=== PATIENT | female | born 1995 | race Caucasian/White ===

== ENCOUNTER 2016-08-16 04:30 | Observation (INO) ==
[2016-08-16] MEDS ORDERED: Ondansetron 4 MG/2 ML VIAL IVP ONE (04:44)
[2016-08-16] MEDS ORDERED: *HR* Morphine 2 MG/ML SYRINGE IVP ONE (04:44)
[2016-08-16] MEDS ORDERED: Ketorolac 30 MG/ML VIAL IVP ONE (04:44)
--- NOTE | 2016-08-16 05:01 | Emergency Department Note ---
Disposition Clinical Impression: Pancreatitis Qualifiers: Chronicity: acute Pancreatitis type: other Acute pancreatitis complication: no infection or necrosis Qualified Code(s): K85.80 - Other acute pancreatitis without necrosis or infection Disposition: Still a Patient Condition: Good Referrals: NO,PCP [Primary Care Provider] - Forms: Work/School Release, ED Satisfaction Letter Time of Disposition: 06:56 General Adult HPI - General Chief complaint: ED Abdominal Pain Stated complaint: right flank pain Time Seen by Provider: 08/16/16 04:33 Source: patient Mode of arrival: ambulatory Limitations: no limitations Nursing Notes Reviewed: Yes Vital Signs Reviewed: Yes - History of Present Illness HPI Narrative: Right-sided flank pain that began around 10 or 11:00 last night. States it is sharp in nature. It radiates around to her groin. No history of kidney stones. Denies hematuria. No alleviating factors. She states that she cannot get comfortable in bed so she came to the emergency department. Pain Scale: 10 - Related Data Previous Rx's Medication Instructions Recorded Ondansetron ODT [Zofran ODT] 4 mg SL Q6HR PRN #30 tab.rapdis 08/19/15 Allergies Allergy/AdvReac Type Severity Reaction Status Date / Time acetaminophen [From Vicodin] Allergy Anaphylaxis Verified 06/13/15 00:07 etodolac Allergy Swelling Verified 06/13/15 00:07 of Lip/Tongue/Throat gabapentin [From Neurontin] Allergy Palpitation Verified 08/19/15 00:34 s hydrocodone [From Vicodin] Allergy Anaphylaxis Verified 06/13/15 00:07 mirtazapine Allergy Hallucinati Verified 06/13/15 00:07 ng naproxen Allergy Abdominal Verified 06/13/15 00:07 Pain pine Allergy Difficulty Uncoded 06/13/15 00:07 Breathing symphony Allergy Hives Uncoded 06/13/15 00:07 All systems ED: reviewed and negative except as stated. Constitutional: Denies: fever, chills ENT ED: Denies: congestion Cardiovascular: Denies: chest pain, palpitations, syncope Respiratory: Denies: cough, dyspnea, wheezes Gastrointestinal: Reports: nausea, vomiting. Denies: abdominal pain, diarrhea, hematemesis, melena, hematochezia Genitourinary: Reports: frequency (Increased.). Denies: urgency, dysuria, hematuria, discharge, dyspareunia Musculoskeletal: Denies: back pain Integumentary: Denies: rash, abrasion Neurological: Denies: headache, weakness Psychiatric: Denies: anxiety Past Medical History - Past Medical History Attestation: Yes The following information was validated with the patient. 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 Absent: scleral icterus - ENT ENT exam: normal exam, normal oropharynx, mucous membranes moist - Neck Neck exam: Present: normal inspection, full ROM, trachea midline - Chest Chest inspection: Present: normal inspection, symmetric chest wall rise. Absent : tenderness - Respiratory Respiratory exam: Present: normal lung sounds bilaterally. Absent: respiratory distress, wheezes - Cardiovascular Cardiovascular exam: Present: regular rate, normal rhythm, normal heart sounds - Abdominal Exam Abdominal exam: Present: soft, Non-Tender, normal bowel sounds, organomegaly. Absent: tenderness, distention, guarding, rebound, rigidity - Extremities Exam Extremities exam: Present: normal inspection, full ROM, normal capillary refill. Absent: tenderness, pedal edema - Back Exam Back exam: Present: normal inspection, full ROM, CVA tenderness (R). Absent: tenderness, CVA tenderness (L) - Neurological Exam Neurological exam: Present: alert, oriented X3 - Psychiatric Psychiatric exam: Present: normal affect, normal mood - Skin Skin exam: Present: warm, dry, intact, normal color. Absent: rash Course Course Narrative: Female patient resting in bed at this time. She is complaining of right back pain that began around 10 to 11:00 last night. She states that she laying in bed when the pain started. She states she could not get comfortable so she ended up coming to the emergency department. She complains of increased urination. She has a type II diabetic states that her blood sugars have been around 200s. She does take Victoza for this. She denies any history of kidney stones. She denies any hematuria. She does report 2 episodes of vomiting tonight. On exam her lung sounds are clear heart sounds are normal. She appears to be resting comfortably. She does have right-sided flank pain on palpation. She states this pain radiates around to her lower abdomen. On abdominal exam her abdomen is soft and nontender to exam. Her lung sounds are clear heart tones are normal. She has no history of stones we will CT patient' s abdomen and provide her with pain relief she is here. - Reevaluation(s) Reevaluation #1: Patient's lipase is elevated. We will admit patient for pancreatitis. CT scan is still pending. Pt is agreeable with this plan. Time: 06:55 Vital Signs Temperature 97.5 F L 08/16/16 04:31 Pulse Rate 88 08/16/16 04:31 Respiratory Rate 18 08/16/16 04:31 Blood Pressure 138/87 08/16/16 04:31 O2 Sat by Pulse Oximetry 99 08/16/16 04:31 Temperature 97.5 F L 08/16/16 04:31 Pulse Rate 88 08/16/16 04:31 Respiratory Rate 18 08/16/16 04:31 Blood Pressure 138/87 08/16/16 04:31 O2 Sat by Pulse Oximetry 99 08/16/16 04:31 Oxygen Delivery Oxygen Delivery Room Air Medical Decision Making - Medical Records Medical records reviewed: Yes I reviewed the patient's medical records. - Lab Data Lab results reviewed: Yes I reviewed the patient's lab results. Result diagrams: 08/16/16 04:59 08/16/16 04:59 Lab Results 08/16/16 08/16/16 08/16/16 Range/Units 04:59 04:59 04:59 WBC 11.0 (4.3-11.1) K/mcL RBC 5.33 H (3.82-4.97) M/mcL Hgb 15.2 (11.5-15.4) g/dL Hct 46.0 H (35.3-44.9) % MCV 86.3 (83.0-100.0) fL MCH 28.5 (28.0-33.3) pg MCHC 33.0 (31.6-35.5) g/dL RDW 13.1 (11.5-14.5) % Plt Count 207 (140-400) K/mcL MPV 10.6 (9.4-12.4) fL Immature Gran % 0.4 (0-4) % Seg Neutrophils % 68.3 % Lymphocytes % 22.2 % Monocytes % 6.8 % Eosinophils % 1.8 % Basophils % 0.5 % Neutrophils # 7.5 (1.6-8.9) K/mcL Lymphocytes # 2.4 (0.6-4.6) K/mcL Monocytes # 0.8 (0.0-1.3) K/mcL Eosinophils # 0.2 (0.0-0.6) K/mcL Basophils # 0.1 (0.0-0.2) K/mcL Sodium 135 L (136-145) mEq/L Potassium 3.8 (3.5-4.5) mEq/L Chloride 101 (98-109) mEq/L Carbon Dioxide 25 (19-29) mEq/L BUN 14 (7-20) mg/dL Creatinine 0.85 (0.57-1.11) mg/dL Est GFR ( Amer) > 60 (> 60) Est GFR (Non-Af Amer) > 60 (> 60) BUN/Creatinine Ratio 16 (6-26) Glucose 334 H (70-99) mg/dL Calculated Osmolality 294 (280-300) Calcium 9.3 (8.6-10.8) mg/dL Total Bilirubin 0.7 (0.2-1.2) mg/dL Direct Bilirubin 0.2 (0.0-0.5) mg/dL Indirect Bilirubin 0.5 (0.0-1.2) mg/dL AST 13 (5-34) Units/L ALT 19 (0-55) Units/L Alkaline Phosphatase 65 (38-126) Units/L Serum Total Protein 7.1 (6.0-8.3) g/dL Albumin 3.8 (3.5-5.0) g/dL Globulin 3.3 (2.4-3.5) g/dL Albumin/Globulin Ratio 1.2 (1.1-2.2) Lipase 371 H (8-78) Units/L Serum , Qual Negative (Negative) Urine Color (Yellow) Urine Clarity (Clear) Urine pH (5.0-8.0) pH Units Ur Specific [place] (1.010-1.025) Urine Protein (Neg-Trace) mg/dL Urine Glucose (UA) (Normal) mg/dL Urine Ketones (Negative) mg/dL Urine Blood (Negative) Urine Nitrite (Negative) Urine Bilirubin (Negative) Urine Urobilinogen (Normal) mg/dL Ur Leukocyte Esterase (Negative) Urine Test (Negative) 08/16/16 08/16/16 Range/Units 06:40 06:40 WBC (4.3-11.1) K/mcL RBC (3.82-4.97) M/mcL Hgb (11.5-15.4) g/dL Hct (35.3-44.9) % MCV (83.0-100.0) fL MCH (28.0-33.3) pg MCHC (31.6-35.5) g/dL RDW (11.5-14.5) % Plt Count (140-400) K/mcL MPV (9.4-12.4) fL Immature Gran % (0-4) % Seg Neutrophils % % Lymphocytes % % Monocytes % % Eosinophils % % Basophils % % Neutrophils # (1.6-8.9) K/mcL Lymphocytes # (0.6-4.6) K/mcL Monocytes # (0.0-1.3) K/mcL Eosinophils # (0.0-0.6) K/mcL Basophils # (0.0-0.2) K/mcL Sodium (136-145) mEq/L Potassium (3.5-4.5) mEq/L Chloride (98-109) mEq/L Carbon Dioxide (19-29) mEq/L BUN (7-20) mg/dL Creatinine (0.57-1.11) mg/dL Est GFR ( Amer) (> 60) Est GFR (Non-Af Amer) (> 60) BUN/Creatinine Ratio (6-26) Glucose (70-99) mg/dL Calculated Osmolality (280-300) Calcium (8.6-10.8) mg/dL Total Bilirubin (0.2-1.2) mg/dL Direct Bilirubin (0.0-0.5) mg/dL Indirect Bilirubin (0.0-1.2) mg/dL AST (5-34) Units/L ALT (0-55) Units/L Alkaline Phosphatase (38-126) Units/L Serum Total Protein (6.0-8.3) g/dL Albumin (3.5-5.0) g/dL Globulin (2.4-3.5) g/dL Albumin/Globulin Ratio (1.1-2.2) Lipase (8-78) Units/L Serum , Qual (Negative) Urine Color Yellow (Yellow) Urine Clarity Cloudy A (Clear) Urine pH 6.0 (5.0-8.0) pH Units Ur Specific [place] > 1.030 H (1.010-1.025) Urine Protein Negative (Neg-Trace) mg/dL Urine Glucose (UA) >=1000 H (Normal) mg/dL Urine Ketones 15 H (Negative) mg/dL Urine Blood Large H (Negative) Urine Nitrite Negative (Negative) Urine Bilirubin Negative (Negative) Urine Urobilinogen Normal (Normal) mg/dL Ur Leukocyte Esterase Negative (Negative) Urine Test Negative (Negative) - Radiology Data Radiology results reviewed: Yes I reviewed the patient's radiology results. Attestation Statement - Attestation Attestation: I personally interviewed and examined this patient and my medical decision- making was reviewed with the ED Resident Physician, Dr. Worthy. I agree with the documented findings, disposition and treatment plan as described except to the extent set forth below. Patient is a 20-year-old diabetic female who presents to emergency today with complaints of right sided flank pain and right-sided abdominal pain. Patient states that associated with 2 episodes of vomiting in the last 12 hours. Patient also complaining of increased urinary frequency and no dysuria and no flank discomfort. Patient denies any fevers or chills, no bowel changes, no other associated symptoms. Agree with Dr. Worthy physical exam findings as documented. Since lab evaluation shows elevated lipase, unclear as to the etiology. Patient states symptoms sounded clinically more suspicious for renal colic so we are obtaining CT imaging to evaluate the genitourinary system for any kidney stones or Dw[place], as well as the pancreas for any surgical complications. CT imaging is pending at this time. We will plan to admit the patient for further evaluation of acute pancreatitis and hyperglycemia, and discussed with hospitalist.
[2016-08-16 05:05] LABS: Basophils # 0.1 K/mcL (0.0-0.2); Basophils % 0.5 %; Eosinophils # 0.2 K/mcL (0.0-0.6); Eosinophils % 1.8 %; Hemoglobin 15.2 g/dL (11.5-15.4); Immature Granulocytes % 0.4 % (0-4); Lymphocytes # 2.4 K/mcL (0.6-4.6); Lymphocytes % 22.2 %; Mean Corpuscular Hemoglobin 28.5 pg (28.0-33.3); Mean Corpuscular Volume 86.3 fL (83.0-100.0); Mean Platelet Volume 10.6 fL (9.4-12.4); Monocytes # 0.8 K/mcL (0.0-1.3); Monocytes % 6.8 %; Neutrophils # 7.5 K/mcL (1.6-8.9); Platelet Count 207 K/mcL (140-400); Red Blood Count 5.33 M/mcL (3.82-4.97); Red Cell Distribution Width 13.1 % (11.5-14.5); Segmented Neutrophils % 68.3 %
[2016-08-16 05:20] LABS: Alanine Aminotransferase 19 Units/L (0-55); Albumin 3.8 g/dL (3.5-5.0); Albumin/Globulin Ratio 1.2 (1.1-2.2); Alkaline Phosphatase 65 Units/L (38-126); Aspartate Amino Transferase 13 Units/L (5-34); BUN/Creatinine Ratio 16 (6-26); Bilirubin,Direct 0.2 mg/dL (0.0-0.5); Bilirubin,Indirect 0.5 mg/dL (0.0-1.2); Bilirubin,Total 0.7 mg/dL (0.2-1.2); Blood Urea Nitrogen 14 mg/dL (7-20); Calcium 9.3 mg/dL (8.6-10.8); Carbon Dioxide 25 mEq/L (19-29); Chloride 101 mEq/L (98-109); Globulin 3.3 g/dL (2.4-3.5); Glucose 334 mg/dL (70-99); Lipase 371 Units/L (8-78); Osmolality,Calculated 294 (280-300); Potassium 3.8 mEq/L (3.5-4.5); Sodium 135 mEq/L (136-145); Total Protein 7.1 g/dL (6.0-8.3); eGFR For African Americans > 60 (> 60); eGFR For Non-African Americans > 60 (> 60)
[2016-08-16] MEDS ORDERED: 0.9 % Sodium Chloride 1,000 ML IVC ONE (05:43)
[2016-08-16 06:51] LABS: Bilirubin,Urine Negative (Negative); Blood,Urine Large (Negative); Clarity,Urine Cloudy (Clear); Color,Urine Yellow (Yellow); Glucose,Urine (UA) >=1000 mg/dL (Normal); Ketones,Urine 15 mg/dL (Negative); Leukocyte Esterase,Urine Negative (Negative); Nitrite,Urine Negative (Negative); Protein,Urine Negative (Neg-Trace); Specific Gravity,Urine > 1.030 (1.010-1.025); Urobilinogen,Urine Normal (Normal)
[2016-08-16 07:14] LABS: RBC,Urine 50-100 per hpf (0-3); WBC,Urine 0-3 per hpf (0-3)
[2016-08-16 07:15] LABS: Bacteria,Urine Few per hpf (None-Few); Squamous Epithelial Cell,Urine Moderate per lpf (None-Few)
[2016-08-16] MEDS ORDERED: *HR* HYDROmorphone (PF) 1 MG/ML SYRINGE IVP ONE (07:16)
--- NOTE | 2016-08-16 07:17 | Emergency Department Note ---
Disposition Clinical Impression: Kidney stone Pancreatitis Qualifiers: Chronicity: acute Pancreatitis type: other Acute pancreatitis complication: no infection or necrosis Qualified Code(s): K85.80 - Other acute pancreatitis without necrosis or infection Disposition: Admitted As Inpatient Condition: Good Referrals: NO,PCP [Primary Care Provider] - Forms: ED Satisfaction Letter, Work/School Release Time of Disposition: 07:38 General Adult HPI - General Chief complaint: ED Abdominal Pain Stated complaint: right flank pain Time Seen by Provider: 08/16/16 04:33 Source: patient Mode of arrival: ambulatory Limitations: no limitations - History of Present Illness Pain Scale: 10 - Related Data Home Medications Medication Instructions Recorded Confirmed Acetaminophen [Tylenol] 1,000 mg PO Q6HR PRN 08/16/16 08/16/16 Leflunomide [Arava] 20 mg PO DAILY 08/16/16 08/16/16 Levothyroxine [Synthroid] 50 mcg PO DAILY 08/16/16 08/16/16 Liraglutide [Victoza 3-Simone] 0.6 mg SQ DAILY 08/16/16 08/16/16 Pregabalin [Lyrica] 150 mg PO BID 08/16/16 08/16/16 Prochlorperazine Maleate 10 mg PO Q8HR PRN 08/16/16 08/16/16 [Compazine] Topiramate [Topamax] 50 mg PO HS 08/16/16 08/16/16 Allergies Allergy/AdvReac Type Severity Reaction Status Date / Time acetaminophen [From Vicodin] Allergy Anaphylaxis Verified 06/13/15 00:07 etodolac Allergy Swelling Verified 06/13/15 00:07 of Lip/Tongue/Throat gabapentin [From Neurontin] Allergy Palpitation Verified 08/19/15 00:34 s hydrocodone [From Vicodin] Allergy Anaphylaxis Verified 06/13/15 00:07 mirtazapine Allergy Hallucinati Verified 06/13/15 00:07 ng naproxen Allergy Abdominal Verified 06/13/15 00:07 Pain pine Allergy Difficulty Uncoded 06/13/15 00:07 Breathing symphony Allergy Hives Uncoded 06/13/15 00:07 Constitutional: Denies: fever, chills ENT ED: Denies: congestion Cardiovascular: Denies: chest pain, palpitations, syncope Respiratory: Denies: cough, dyspnea, wheezes Gastrointestinal: Reports: nausea, vomiting. Denies: abdominal pain, diarrhea, hematemesis, melena, hematochezia Genitourinary: Reports: frequency (Increased.). 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: polycystic ovary syndrome - Social History Smoking Status: Current every day smoker Smokeless Tobacco Status: No Alcohol use: Reports: none Drug use: Reports: none Physical Exam - General Limitations: no limitations General appearance: alert, in no apparent distress Course Vital Signs Temperature 97.5 F L 08/16/16 04:31 Pulse Rate 88 08/16/16 04:31 Respiratory Rate 18 08/16/16 04:31 Blood Pressure 138/87 08/16/16 04:31 O2 Sat by Pulse Oximetry 99 08/16/16 04:31 Temperature 97.5 F L 08/16/16 04:31 Pulse Rate 80 08/16/16 07:34 Respiratory Rate 16 08/16/16 07:34 Blood Pressure 127/76 08/16/16 07:34 O2 Sat by Pulse Oximetry 98 08/16/16 07:34 Oxygen Delivery Oxygen Delivery Room Air Medical Decision Making - Lab Data Lab results reviewed: Yes I reviewed the patient's lab results. Result diagrams: 08/16/16 04:59 08/16/16 04:59 Lab Results 08/16/16 08/16/16 08/16/16 Range/Units 04:59 04:59 04:59 WBC 11.0 (4.3-11.1) K/mcL RBC 5.33 H (3.82-4.97) M/mcL Hgb 15.2 (11.5-15.4) g/dL Hct 46.0 H (35.3-44.9) % MCV 86.3 (83.0-100.0) fL MCH 28.5 (28.0-33.3) pg MCHC 33.0 (31.6-35.5) g/dL RDW 13.1 (11.5-14.5) % Plt Count 207 (140-400) K/mcL MPV 10.6 (9.4-12.4) fL Immature Gran % 0.4 (0-4) % Seg Neutrophils % 68.3 % Lymphocytes % 22.2 % Monocytes % 6.8 % Eosinophils % 1.8 % Basophils % 0.5 % Neutrophils # 7.5 (1.6-8.9) K/mcL Lymphocytes # 2.4 (0.6-4.6) K/mcL Monocytes # 0.8 (0.0-1.3) K/mcL Eosinophils # 0.2 (0.0-0.6) K/mcL Basophils # 0.1 (0.0-0.2) K/mcL Sodium 135 L (136-145) mEq/L Potassium 3.8 (3.5-4.5) mEq/L Chloride 101 (98-109) mEq/L Carbon Dioxide 25 (19-29) mEq/L BUN 14 (7-20) mg/dL Creatinine 0.85 (0.57-1.11) mg/dL Est GFR ( Amer) > 60 (> 60) Est GFR (Non-Af Amer) > 60 (> 60) BUN/Creatinine Ratio 16 (6-26) Glucose 334 H (70-99) mg/dL Calculated Osmolality 294 (280-300) Calcium 9.3 (8.6-10.8) mg/dL Total Bilirubin 0.7 (0.2-1.2) mg/dL Direct Bilirubin 0.2 (0.0-0.5) mg/dL Indirect Bilirubin 0.5 (0.0-1.2) mg/dL AST 13 (5-34) Units/L ALT 19 (0-55) Units/L Alkaline Phosphatase 65 (38-126) Units/L Serum Total Protein 7.1 (6.0-8.3) g/dL Albumin 3.8 (3.5-5.0) g/dL Globulin 3.3 (2.4-3.5) g/dL Albumin/Globulin Ratio 1.2 (1.1-2.2) Lipase 371 H (8-78) Units/L Serum , Qual Negative (Negative) Urine Color (Yellow) Urine Clarity (Clear) Urine pH (5.0-8.0) pH Units Ur Specific [place] (1.010-1.025) Urine Protein (Neg-Trace) mg/dL Urine Glucose (UA) (Normal) mg/dL Urine Ketones (Negative) mg/dL Urine Blood (Negative) Urine Nitrite (Negative) Urine Bilirubin (Negative) Urine Urobilinogen (Normal) mg/dL Ur Leukocyte Esterase (Negative) Urine Microscopic RBC (0-3) per hpf Urine Microscopic WBC (0-3) per hpf Ur Squamous Epith Cells (None-Few) per lpf Urine Bacteria (None-Few) per hpf Ur Culture Indicated? (NO) Urine Test (Negative) 08/16/16 08/16/16 Range/Units 06:40 06:40 WBC (4.3-11.1) K/mcL RBC (3.82-4.97) M/mcL Hgb (11.5-15.4) g/dL Hct (35.3-44.9) % MCV (83.0-100.0) fL MCH (28.0-33.3) pg MCHC (31.6-35.5) g/dL RDW (11.5-14.5) % Plt Count (140-400) K/mcL MPV (9.4-12.4) fL Immature Gran % (0-4) % Seg Neutrophils % % Lymphocytes % % Monocytes % % Eosinophils % % Basophils % % Neutrophils # (1.6-8.9) K/mcL Lymphocytes # (0.6-4.6) K/mcL Monocytes # (0.0-1.3) K/mcL Eosinophils # (0.0-0.6) K/mcL Basophils # (0.0-0.2) K/mcL Sodium (136-145) mEq/L Potassium (3.5-4.5) mEq/L Chloride (98-109) mEq/L Carbon Dioxide (19-29) mEq/L BUN (7-20) mg/dL Creatinine (0.57-1.11) mg/dL Est GFR ( Amer) (> 60) Est GFR (Non-Af Amer) (> 60) BUN/Creatinine Ratio (6-26) Glucose (70-99) mg/dL Calculated Osmolality (280-300) Calcium (8.6-10.8) mg/dL Total Bilirubin (0.2-1.2) mg/dL Direct Bilirubin (0.0-0.5) mg/dL Indirect Bilirubin (0.0-1.2) mg/dL AST (5-34) Units/L ALT (0-55) Units/L Alkaline Phosphatase (38-126) Units/L Serum Total Protein (6.0-8.3) g/dL Albumin (3.5-5.0) g/dL Globulin (2.4-3.5) g/dL Albumin/Globulin Ratio (1.1-2.2) Lipase (8-78) Units/L Serum , Qual (Negative) Urine Color Yellow (Yellow) Urine Clarity Cloudy A (Clear) Urine pH 6.0 (5.0-8.0) pH Units Ur Specific [place] > 1.030 H (1.010-1.025) Urine Protein Negative (Neg-Trace) mg/dL Urine Glucose (UA) >=1000 H (Normal) mg/dL Urine Ketones 15 H (Negative) mg/dL Urine Blood Large H (Negative) Urine Nitrite Negative (Negative) Urine Bilirubin Negative (Negative) Urine Urobilinogen Normal (Normal) mg/dL Ur Leukocyte Esterase Negative (Negative) Urine Microscopic RBC 50-100 H (0-3) per hpf Urine Microscopic WBC 0-3 (0-3) per hpf Ur Squamous Epith Cells Moderate H (None-Few) per lpf Urine Bacteria Few (None-Few) per hpf Ur Culture Indicated? NO (NO) Urine Test Negative (Negative) - Radiology Data Radiology results reviewed: Yes I reviewed the patient's radiology results. Attestation Statement - Attestation Attestation: Care of patient assumed from Dr. Andria Barton at 7 AM pending admission for acute pancreatitis. Patient presents with flank pain. CT indicates obstructing proximal right ureteral stone. Lipase greater than 300. Patient requests additional analgesics. Labs reviewed by me. I will discuss this case with the admitting hospitalist and process admission 07:39: I discussed this case with the urologist chemical economist Dr. Marquez. The patient is to be admitted to the medicine service under the care of Dr. Palmer
[2016-08-16] MEDS ORDERED: Ondansetron 4 MG/2 ML VIAL IVP PRN (10:36)
[2016-08-16] MEDS ORDERED: *HR* OxyCODONE Immed Rel 5 MG TABLET PO PRN (10:36)
[2016-08-16] MEDS ORDERED: Naloxone 0.4 MG/ML INJ IVP PRN (10:36)
[2016-08-16] MEDS ORDERED: *HR* HYDROmorphone (PF) 1 MG/ML SYRINGE IVP PRN (10:36)
[2016-08-16] MEDS ORDERED: 0.9 % Sodium Chloride 1,000 ML IVC SCH (10:45)
[2016-08-16] MEDS ORDERED: Dextrose Gel 15 GM PO PRN ×2 (11:28)
[2016-08-16] MEDS ORDERED: *HR* Dextrose 50 % in Water (Syg) 50 ML SYRINGE IVP PRN (11:28)
[2016-08-16] MEDS ORDERED: D5% in Water 1,000 ML IVC PRN (11:28)
--- NOTE | 2016-08-16 11:42 | Internal Med History&Physical ---
Date of Encounter: 08/16/16 Time of Encounter: 11:40 Assessment and Plan (1) Hydronephrosis with renal and ureteral calculous obstruction Current visit: Yes Status: Acute Patient presented with right flank pain radiating around to right abdomen. CT showed 1-2mm obstructing right proximal ureateral calculi with mild hydronephrosis. UA does not appear infected. IV fluids 0.9NS at 150mL/hr Urology consulted. PRN oxycodone and dialudid for pain control PRN narcan for respirator depression PRN zofran for nausea. (2) Type 2 diabetes mellitus Current visit: Yes Status: Acute Hold victoza check A1c. Check blood sugars Q6hr Sliding scale correction dose Q6hr hypoglycemic protocol. Qualifiers: Diabetes mellitus complication status: without complication Diabetes mellitus group home insulin use: without group home use Qualified Code(s): E11.9 - Type 2 diabetes mellitus without complications (3) Pancreatitis Current visit: Yes Status: Suspected Patient with abdominal pain, nausea and vomiting. Lipase elevated at 371. CT does not show any signs of pancreatitis. Abdominal pain likely secondary to kidney stone. IV fluids 0.9NS at 150mL/hr PRN oxycodone and dilaudid for pain control PRN zofran for nausea PRN narcan for respiratory depression. Qualifiers: Chronicity: acute Pancreatitis type: other Acute pancreatitis complication: no infection or necrosis Qualified Code(s): K85.80 - Other acute pancreatitis without necrosis or infection (4) DVT prophylaxis Current visit: Yes Status: Acute Up ad sara anti-embolic stockings Heparin 5000u SQ TID Internal Medicine - H&P: HPI Chief complaint: abdominal pain Admitted From: Emergency Dept Plans for Post Hospital Care: Home History of present illness: Ms. Galarza is a 21 year old female with type 2 diabetes, hypothyroid, rheumatoid arthritis, fibromyalgia, acid reflux presents to the emergency room early this morning with complaints of abdominal pain. Patient reports at approximately 10 PM last evening she started having pain in her right flank wrapping around to the front of the right side. She describes the pain as severe, shooting pain that was somewhat relieved by pain medicine given in the emergency department. She also reports she started having nausea and vomiting at approximately 3 AM which is about the time she arrived at the emergency department. She reports chronic chills and sweats related to her rheumatoid arthritis, she denies any fevers, chest pain, palpitations, shortness of breath , pain with urination, diarrhea. Evaluation in the emergency department included a CT of her abdomen and pelvis which showed a 1-2 mm obstructing right proximal ureteral calculi with mild hydronephrosis. her lipase was elev, however the CT showed a normal pancreas and ducts. She is hyperglycemic with blood sugar of 334. White blood cell count was mildly elevated at 11.0. Dr. Marquez of urology was consulted. On exam, patient is alert and oriented, in no acute distress. Lungs are clear bilaterally to auscultation heart has regular rate and rhythm. Abdomen is mildly diffusely tender with increased tenderness in the left and right upper quadrants. There is no CVA tenderness. Past Med Surg Social Fam HX - Past Medical History Medical history: asthma, diabetes, fibromyalgia, RA, thyroid disease Psychiatric history: depression - Past Surgical History Surgical History: orthopedic, other - Social History Smoking Status: Current every day smoker (3 cigarrettes/day) Smokeless Tobacco Status: No Alcohol use: none Drug use: none - Family History Mother Name: Ailyn Living Status: Still Living Hx Family Cardiac Disorders: Yes (a-fib) Hx Family Genitourinary Disorders: Yes (1 functioning kidney) Hx Family Endocrine Disorder: Yes (DM) Father Hx Family Cardiac Disorders: Yes (HTN) Hx Family Genitourinary Disorders: Yes (renal failure) Hx Family Musculoskeletal Disorders: Yes (back surgeries) Internal Medicine - H&P: Meds Acetaminophen [Tylenol] 1,000 mg PO Q6HR PRN 08/16/16 [History] Leflunomide [Arava] 20 mg PO DAILY 08/16/16 [History] Levothyroxine [Synthroid] 50 mcg PO DAILY 08/16/16 [History] Liraglutide [Victoza 3-Simone] 0.6 mg SQ DAILY 08/16/16 [History] Pregabalin [Lyrica] 150 mg PO BID 08/16/16 [History] Prochlorperazine Maleate [Compazine] 10 mg PO Q8HR PRN 08/16/16 [History] Topiramate [Topamax] 50 mg PO HS 08/16/16 [History] Allergies acetaminophen [From Vicodin] Allergy (Verified 06/13/15 00:07) Anaphylaxis etodolac Allergy (Verified 06/13/15 00:07) Swelling of Lip/Tongue/Throat gabapentin [From Neurontin] Allergy (Verified 08/19/15 00:34) Palpitations hydrocodone [From Vicodin] Allergy (Verified 06/13/15 00:07) Anaphylaxis mirtazapine Allergy (Verified 06/13/15 00:07) Hallucinating naproxen Allergy (Verified 06/13/15 00:07) Abdominal Pain pine Allergy (Uncoded 06/13/15 00:07) Difficulty Breathing symphony Allergy (Uncoded 06/13/15 00:07) Hives All Systems PM: A 10-system review of systems was performed and is negative for pertinent findings except as documented above in the HPI. - Constitutional Constitutional: chills, night sweats, no fever(s) - EENT Eyes: no change in vision, no discharge, no pain, no photophobia Ears: no ear discharge, no ear pain, no tinnitus Nose, mouth and throat: no dysphagia, no nasal discharge, no neck pain, no sore throat - Cardiovascular Cardiovascular ROS IM: no chest pain, no diaphoresis, no dyspnea, no lightheadedness, no palpitations, no syncope - Respiratory Respiratory: no cough, no dyspnea, no wheezing, no excessive phlegm production - Gastrointestinal Gastrointestinal: abdominal pain, nausea, vomiting, no diarrhea, no hematemesis , no hematochezia, no melena - Genitourinary Genitourinary: flank pain, no change in urinary stream, no dysuria, no hematuria - Musculoskeletal Musculoskeletal ROS IM: no numbness, no tingling - Integumentary Integumentary IM: no rash, no unusual bruising - Neurological Neurological ROS: no confusion, no convulsions, no focal weakness, no numbness, no tingling, no tremor(s) - Hematologic/Lymphatic Hematologic/Lymphatic: no easy bruising - Constitutional Vitals: Temp Pulse Resp BP Pulse Ox 97.5 F L 78 16 108/75 94 08/16/16 11:26 08/16/16 11:26 08/16/16 11:26 08/16/16 11:26 08/16/16 11:26 General appearance: Present: A&O X 3, morbidly obese, pleasant, no acute distress - Head Head exam: Present: atraumatic, normocephalic - Eye Eye exam: Present: PERRL, conjuntiva pink, sclera anicteric Pupils: Present: PERRL - Neck Neck exam general surgery: Present: supple, trachea midline. Absent: lymphadenopathy - Respiratory Respiratory exam: Present: CTAB. Absent: accessory muscle use, rales, rhonchi, wheezes - Cardiovascular Cardiovascular exam: Present: RRR, +S1, +S2. Absent: diastolic murmur, gallop, rubs, systolic murmur - GI/Abdominal GI/Abdominal exam: Present: normal bowel sounds, soft, tenderness, no peritoneal signs. Absent: distended - Extremities Exam Extremities exam: Present: warm, radial pulses palpable and symetrical. Absent : calf tenderness, cyanotic, pedal edema - Neurological Exam Neurological exam: Present: CN II-XII intact, oriented X3, no focal deficits. Absent: facial droop, speech deficit - Skin Skin exam: Present: dry, intact Internal Med - H&P Results - Labs CBC & Chem 7: 08/16/16 04:59 08/16/16 04:59 Labs: All Lab Results (24 Hours) 08/16/16 08/16/16 08/16/16 Range/Units 04:59 04:59 04:59 WBC 11.0 (4.3-11.1) K/mcL RBC 5.33 H (3.82-4.97) M/mcL Hgb 15.2 (11.5-15.4) g/dL Hct 46.0 H (35.3-44.9) % MCV 86.3 (83.0-100.0) fL MCH 28.5 (28.0-33.3) pg MCHC 33.0 (31.6-35.5) g/dL RDW 13.1 (11.5-14.5) % Plt Count 207 (140-400) K/mcL MPV 10.6 (9.4-12.4) fL Immature Gran % 0.4 (0-4) % Seg Neutrophils % 68.3 % Lymphocytes % 22.2 % Monocytes % 6.8 % Eosinophils % 1.8 % Basophils % 0.5 % Neutrophils # 7.5 (1.6-8.9) K/mcL Lymphocytes # 2.4 (0.6-4.6) K/mcL Monocytes # 0.8 (0.0-1.3) K/mcL Eosinophils # 0.2 (0.0-0.6) K/mcL Basophils # 0.1 (0.0-0.2) K/mcL Sodium 135 L (136-145) mEq/L Potassium 3.8 (3.5-4.5) mEq/L Chloride 101 (98-109) mEq/L Carbon Dioxide 25 (19-29) mEq/L BUN 14 (7-20) mg/dL Creatinine 0.85 (0.57-1.11) mg/dL Est GFR ( Amer) > 60 (> 60) Est GFR (Non-Af Amer) > 60 (> 60) BUN/Creatinine Ratio 16 (6-26) Glucose 334 H (70-99) mg/dL POC Glucose (58-89) Calculated Osmolality 294 (280-300) Calcium 9.3 (8.6-10.8) mg/dL Total Bilirubin 0.7 (0.2-1.2) mg/dL Direct Bilirubin 0.2 (0.0-0.5) mg/dL Indirect Bilirubin 0.5 (0.0-1.2) mg/dL AST 13 (5-34) Units/L ALT 19 (0-55) Units/L Alkaline Phosphatase 65 (38-126) Units/L Serum Total Protein 7.1 (6.0-8.3) g/dL Albumin 3.8 (3.5-5.0) g/dL Globulin 3.3 (2.4-3.5) g/dL Albumin/Globulin Ratio 1.2 (1.1-2.2) Lipase 371 H (8-78) Units/L Serum , Qual Negative (Negative) Urine Color (Yellow) Urine Clarity (Clear) Urine pH (5.0-8.0) pH Units Ur Specific [place] (1.010-1.025) Urine Protein (Neg-Trace) mg/dL Urine Glucose (UA) (Normal) mg/dL Urine Ketones (Negative) mg/dL Urine Blood (Negative) Urine Nitrite (Negative) Urine Bilirubin (Negative) Urine Urobilinogen (Normal) mg/dL Ur Leukocyte Esterase (Negative) Urine Microscopic RBC (0-3) per hpf Urine Microscopic WBC (0-3) per hpf Ur Squamous Epith Cells (None-Few) per lpf Urine Bacteria (None-Few) per hpf Ur Culture Indicated? (NO) Urine Test (Negative) 08/16/16 08/16/16 08/16/16 Range/Units 06:40 06:40 11:22 WBC (4.3-11.1) K/mcL RBC (3.82-4.97) M/mcL Hgb (11.5-15.4) g/dL Hct (35.3-44.9) % MCV (83.0-100.0) fL MCH (28.0-33.3) pg MCHC (31.6-35.5) g/dL RDW (11.5-14.5) % Plt Count (140-400) K/mcL MPV (9.4-12.4) fL Immature Gran % (0-4) % Seg Neutrophils % % Lymphocytes % % Monocytes % % Eosinophils % % Basophils % % Neutrophils # (1.6-8.9) K/mcL Lymphocytes # (0.6-4.6) K/mcL Monocytes # (0.0-1.3) K/mcL Eosinophils # (0.0-0.6) K/mcL Basophils # (0.0-0.2) K/mcL Sodium (136-145) mEq/L Potassium (3.5-4.5) mEq/L Chloride (98-109) mEq/L Carbon Dioxide (19-29) mEq/L BUN (7-20) mg/dL Creatinine (0.57-1.11) mg/dL Est GFR ( Amer) (> 60) Est GFR (Non-Af Amer) (> 60) BUN/Creatinine Ratio (6-26) Glucose (70-99) mg/dL POC Glucose 217 H (58-89) Calculated Osmolality (280-300) Calcium (8.6-10.8) mg/dL Total Bilirubin (0.2-1.2) mg/dL Direct Bilirubin (0.0-0.5) mg/dL Indirect Bilirubin (0.0-1.2) mg/dL AST (5-34) Units/L ALT (0-55) Units/L Alkaline Phosphatase (38-126) Units/L Serum Total Protein (6.0-8.3) g/dL Albumin (3.5-5.0) g/dL Globulin (2.4-3.5) g/dL Albumin/Globulin Ratio (1.1-2.2) Lipase (8-78) Units/L Serum , Qual (Negative) Urine Color Yellow (Yellow) Urine Clarity Cloudy A (Clear) Urine pH 6.0 (5.0-8.0) pH Units Ur Specific [place] > 1.030 H (1.010-1.025) Urine Protein Negative (Neg-Trace) mg/dL Urine Glucose (UA) >=1000 H (Normal) mg/dL Urine Ketones 15 H (Negative) mg/dL Urine Blood Large H (Negative) Urine Nitrite Negative (Negative) Urine Bilirubin Negative (Negative) Urine Urobilinogen Normal (Normal) mg/dL Ur Leukocyte Esterase Negative (Negative) Urine Microscopic RBC 50-100 H (0-3) per hpf Urine Microscopic WBC 0-3 (0-3) per hpf Ur Squamous Epith Cells Moderate H (None-Few) per lpf Urine Bacteria Few (None-Few) per hpf Ur Culture Indicated? NO (NO) Urine Test Negative (Negative) - Diagnostic Studies CT scan - abdomen Additional comments: Abdomen/Pelvis CT 08/16/16 04:44 IMPRESSION: 1. 1-2 mm obstructing right proximal ureteral calculus resulting in mild hydronephrosis and renal edema. 2. Mild hepatic steatosis. 3. Normal appendix. D/ / 08/16/2016 07:44:50 Tanner Donahue MD / jarrod Interpreting Provider: Tanner Donahue MD
[2016-08-16] MEDS: Insulin LISPRO 300 UNITS/3 ML VIAL SQ SCH ×2 (12:02→17:45)
[2016-08-16] MEDS: 0.9 % Sodium Chloride 1,000 ML IVC SCH ×2 (12:02→18:43)
[2016-08-16 12:16] LABS: Hemoglobin A1C 9.8 %
[2016-08-16] MEDS: *HR* Heparin 5,000 UNIT/ML VIAL SQ SCH ×2 (14:45→21:37)
--- NOTE | 2016-08-16 18:40 | Urology - Consult Note ---
Date of Encounter: 08/16/16 Time of Encounter: 18:37 - Assessment and Plan (1) Hydronephrosis with renal and ureteral calculous obstruction Current Visit: Yes Status: Acute Assessment and plan: 21-year-old woman with a 1-2 mm right proximal ureteral stone and right hydronephrosis. The stone is likely causing her the pain. We discussed that this is a very small stone and there is a high likelihood it can pass on its own. We discussed options. We will allow her to have a general diet today. We will see how her pain does overnight. If her pain is not adequately controlled, then we can consider proceeding with a right ureteroscopic stone extraction with stent placement. We discussed the risks involved with the surgery. I will see her tomorrow and reassess. Urology CN:MAURICE Consult date: 08/16/16 Reason for consult Urology: Other (right ureteral stone) Requesting physician: Marlene Laguerre History of present illness: 21-year-old woman presents with a 2 day history of right flank pain. The pain is sharp and is located in the right flank. It radiates to the groin. She has never had pain like this before. It was quite severe. She came to the emergency department. A CT scan showed concern for a right proximal ureteral stone. She did have an elevated lipase. She was admitted for possible pancreatitis along with this obstructing stone. Currently, she is still having some pain, but it seems to be improved. Past Med Surg Social Fam HX - Past Medical History Medical history: asthma, diabetes, fibromyalgia, RA, thyroid disease Psychiatric history: depression - Past Surgical History Surgical History: orthopedic, other - Social History Smoking Status: Current every day smoker (3 cigarrettes/day) Smokeless Tobacco Status: No Alcohol use: none Drug use: none - Family History Mother Name: Ailyn Living Status: Still Living Hx Family Cardiac Disorders: Yes (a-fib) Hx Family Genitourinary Disorders: Yes (1 functioning kidney) Hx Family Endocrine Disorder: Yes (DM) Father Hx Family Cardiac Disorders: Yes (HTN) Hx Family Genitourinary Disorders: Yes (renal failure) Hx Family Musculoskeletal Disorders: Yes (back surgeries) Medications and Allergies Acetaminophen [Tylenol] 1,000 mg PO Q6HR PRN 08/16/16 [History] Leflunomide [Arava] 20 mg PO DAILY 08/16/16 [History] Levothyroxine [Synthroid] 50 mcg PO DAILY 08/16/16 [History] Liraglutide [Victoza 3-Simone] 0.6 mg SQ DAILY 08/16/16 [History] Pregabalin [Lyrica] 150 mg PO BID 08/16/16 [History] Prochlorperazine Maleate [Compazine] 10 mg PO Q8HR PRN 08/16/16 [History] Topiramate [Topamax] 50 mg PO HS 08/16/16 [History] Allergies acetaminophen [From Vicodin] Allergy (Verified 06/13/15 00:07) Anaphylaxis etodolac Allergy (Verified 06/13/15 00:07) Swelling of Lip/Tongue/Throat gabapentin [From Neurontin] Allergy (Verified 08/19/15 00:34) Palpitations hydrocodone [From Vicodin] Allergy (Verified 06/13/15 00:07) Anaphylaxis mirtazapine Allergy (Verified 06/13/15 00:07) Hallucinating naproxen Allergy (Verified 06/13/15 00:07) Abdominal Pain pine Allergy (Uncoded 06/13/15 00:07) Difficulty Breathing symphony Allergy (Uncoded 06/13/15 00:07) Hives Review of Systems - Constitutional no chills, no fever(s) - EENT Nose, mouth and throat: no dizziness - Cardiovascular no chest pain - Respiratory no dyspnea - Gastrointestinal no nausea, no vomiting - Genitourinary Genitourinary: flank pain, no hematuria - Musculoskeletal no back pain - Integumentary no erythema, no rash - Neurological no weakness - Psychiatric no suicidal ideation - Hematologic/Lymphatic no easy bleeding - Allergic/Immunologic no wheezing Exam Initial Vital Signs Temp Pulse Resp BP Pulse Ox 97.5 F L 88 18 138/87 99 08/16/16 04:31 08/16/16 04:31 08/16/16 04:31 08/16/16 04:31 08/16/16 04:31 - General physical appearance Present: well developed, well nourished, no distress - Eyes Absent: icteric - ENT Present: normal nares - Neck Present: trachea midline - Respiratory Present: normal respiratory effort - Cardiovascular Cardiovascular exam IM: RRR - Abdomen Abdomen: Present: soft Urology Results - Labs 08/16/16 04:59 08/16/16 04:59 Abnormal lab results RBC 5.33 M/mcL (3.82-4.97) H 08/16/16 04:59 Hct 46.0 % (35.3-44.9) H 08/16/16 04:59 Sodium 135 mEq/L (136-145) L 08/16/16 04:59 Glucose 334 mg/dL (70-99) H 08/16/16 04:59 POC Glucose 139 (58-89) H 08/16/16 17:26 Hemoglobin A1c 9.8 % (-5.6) H 08/16/16 04:59 Lipase 371 Units/L (8-78) H 08/16/16 04:59 Urine Clarity Cloudy (Clear) A 08/16/16 06:40 Ur Specific [place] > 1.030 (1.010-1.025) H 08/16/16 06:40 Urine Glucose (UA) >=1000 mg/dL (Normal) H 08/16/16 06:40 Urine Ketones 15 mg/dL (Negative) H 08/16/16 06:40 Urine Blood Large (Negative) H 08/16/16 06:40 Urine Microscopic RBC 50-100 per hpf (0-3) H 08/16/16 06:40 Ur Squamous Epith Cells Moderate per lpf (None-Few) H 08/16/16 06:40 All other labs normal. - Imaging CT scan - abdomen: report reviewed, image reviewed CT scan - pelvis: report reviewed, image reviewed Consult Discharge Plan - Plan Referrals: Marla Pappas, ALTERATIONS SUPERVISOR [Advanced Practice Nurse] - 08/28/16 1:45 pm
[2016-08-16] MEDS ORDERED: Topiramate 25 MG TABLET PO SCH (21:00)
[2016-08-16] MEDS: Pregabalin 75 MG CAPSULE PO SCH (21:36)
[2016-08-17] MEDS: Insulin LISPRO 300 UNITS/3 ML VIAL SQ SCH ×2 (00:26→05:28)
[2016-08-17] MEDS: 0.9 % Sodium Chloride 1,000 ML IVC SCH (01:36)
[2016-08-17] MEDS: *HR* Heparin 5,000 UNIT/ML VIAL SQ SCH (05:28)
[2016-08-17 05:36] LABS: Basophils # 0.1 K/mcL (0.0-0.2); Basophils % 0.6 %; Eosinophils # 0.2 K/mcL (0.0-0.6); Eosinophils % 2.1 %; Hematocrit 38.8 % (35.3-44.9); Immature Granulocytes % 0.3 % (0-4); Lymphocytes # 3.2 K/mcL (0.6-4.6); Lymphocytes % 35.5 %; Mean Corpuscular HGB Conc 33.2 g/dL (31.6-35.5); Mean Corpuscular Hemoglobin 29.1 pg (28.0-33.3); Mean Corpuscular Volume 87.6 fL (83.0-100.0); Mean Platelet Volume 10.9 fL (9.4-12.4); Monocytes # 0.6 K/mcL (0.0-1.3); Monocytes % 6.5 %; Neutrophils # 4.9 K/mcL (1.6-8.9); Platelet Count 194 K/mcL (140-400); Red Blood Count 4.43 M/mcL (3.82-4.97); Red Cell Distribution Width 13.2 % (11.5-14.5)
[2016-08-17 05:41] LABS: Hemoglobin 12.9 g/dL (11.5-15.4)
[2016-08-17 06:04] LABS: BUN/Creatinine Ratio 11 (6-26); Blood Urea Nitrogen 7 mg/dL (7-20); Calcium 8.4 mg/dL (8.6-10.8); Carbon Dioxide 25 mEq/L (19-29); Chloride 108 mEq/L (98-109); Glucose 190 mg/dL (70-99); Osmolality,Calculated 289 (280-300); Potassium 3.8 mEq/L (3.5-4.5); Sodium 138 mEq/L (136-145); eGFR For African Americans > 60 (> 60); eGFR For Non-African Americans > 60 (> 60)
--- NOTE | 2016-08-17 07:37 | Urology Progress Note ---
Date of Encounter: 08/17/16 Time of Encounter: 07:36 - Assessment and Plan (1) Hydronephrosis with renal and ureteral calculous obstruction Current Visit: Yes Status: Acute Assessment and plan: 21-year-old woman with a history of nephrolithiasis. Her pain is adequately controlled at this time. I think it be reasonable to discharge her with oral pain medication and have her follow-up with me in 1 week for a checkup. If her pain returns, then she can proceed back to the emergency room. She has a 1 mm stone which is fairly small. I think there is a high likelihood that she will go to pass it on her own. Progress Note Narrative: 21-year-old woman with a right ureteral stone. She says she is feeling fairly well today. She will try to pass her stone on her own. Objective Initial Vital Signs Temp Pulse Resp BP Pulse Ox 97.5 F L 88 18 138/87 99 08/16/16 04:31 08/16/16 04:31 08/16/16 04:31 08/16/16 04:31 08/16/16 04:31 - General physical appearance Present: well developed, well nourished, no distress - Respiratory Present: normal respiratory effort - Abdomen Present: soft - Labs 08/17/16 05:14 08/17/16 05:14 Diabetes panel 08/17/16 Range/Units 05:14 Sodium 138 (136-145) mEq/L Potassium 3.8 (3.5-4.5) mEq/L Chloride 108 (98-109) mEq/L Carbon Dioxide 25 (19-29) mEq/L BUN 7 (7-20) mg/dL Creatinine 0.63 (0.57-1.11) mg/dL Glucose 190 H (70-99) mg/dL Calcium 8.4 L (8.6-10.8) mg/dL Calcium panel 08/17/16 Range/Units 05:14 Calcium 8.4 L (8.6-10.8) mg/dL Pituitary panel 08/17/16 Range/Units 05:14 Sodium 138 (136-145) mEq/L Potassium 3.8 (3.5-4.5) mEq/L Chloride 108 (98-109) mEq/L Carbon Dioxide 25 (19-29) mEq/L BUN 7 (7-20) mg/dL Creatinine 0.63 (0.57-1.11) mg/dL Glucose 190 H (70-99) mg/dL Calcium 8.4 L (8.6-10.8) mg/dL Adrenal panel 08/17/16 Range/Units 05:14 Sodium 138 (136-145) mEq/L Potassium 3.8 (3.5-4.5) mEq/L Chloride 108 (98-109) mEq/L Carbon Dioxide 25 (19-29) mEq/L BUN 7 (7-20) mg/dL Creatinine 0.63 (0.57-1.11) mg/dL Glucose 190 H (70-99) mg/dL Calcium 8.4 L (8.6-10.8) mg/dL Consult Discharge Plan - Plan Referrals: Marla Pappas CNP [Advanced Practice Nurse] - 08/28/16 1:45 pm
[2016-08-17] MEDS: Pregabalin 75 MG CAPSULE PO SCH (07:40)
[2016-08-17] MEDS ORDERED: *HR* HYDROmorphone (PF) 1 MG/ML SYRINGE IVP PRN (08:23)
[2016-08-17] MEDS ORDERED: *HR* OxyCODONE Immed Rel 5 MG TABLET PO PRN (08:24)
[2016-08-17] MEDS ORDERED: (Leflunomide [Arava] 20 MG) PO SCH (09:00)
[2016-08-17 10:42] VITALS: BP 97/64
--- NOTE | 2016-08-17 11:37 | Discharge Summary ---
Date of Encounter: 08/17/16 Time of Encounter: 11:35 - Discharge Diagnosis (1) Pancreatitis Priority: Primary Status: Suspected Qualifiers: Chronicity: acute Pancreatitis type: other Acute pancreatitis complication: no infection or necrosis Qualified Code(s): K85.80 - Other acute pancreatitis without necrosis or infection (2) Kidney stone Priority: Primary Status: Acute (3) Hydronephrosis with renal and ureteral calculous obstruction Priority: Primary Status: Acute - Discharge Medications Prescriptions: Acetaminophen w/Cod 300-30 mg [Tylenol w/Codeine #3] 1 each PO Q6HR PRN #20 tablet PRN Reason: Moderate Pain Home Medications: Acetaminophen [Tylenol] 1,000 mg PO Q6HR PRN 08/16/16 [History] Leflunomide [Arava] 20 mg PO DAILY 08/16/16 [History] Levothyroxine [Synthroid] 50 mcg PO DAILY 08/16/16 [History] Liraglutide [Victoza 3-Simone] 0.6 mg SQ DAILY 08/16/16 [History] Pregabalin [Lyrica] 150 mg PO BID 08/16/16 [History] Prochlorperazine Maleate [Compazine] 10 mg PO Q8HR PRN 08/16/16 [History] Topiramate [Topamax] 50 mg PO HS 08/16/16 [History] Acetaminophen w/Cod 300-30 mg [Tylenol w/Codeine #3] 1 each PO Q6HR PRN #20 tablet 08/17/16 [Rx] Allergies/Adverse Reactions: Allergies acetaminophen [From Vicodin] Allergy (Verified 06/13/15 00:07) Anaphylaxis etodolac Allergy (Verified 06/13/15 00:07) Swelling of Lip/Tongue/Throat gabapentin [From Neurontin] Allergy (Verified 08/19/15 00:34) Palpitations hydrocodone [From Vicodin] Allergy (Verified 06/13/15 00:07) Anaphylaxis mirtazapine Allergy (Verified 06/13/15 00:07) Hallucinating naproxen Allergy (Verified 06/13/15 00:07) Abdominal Pain pine Allergy (Uncoded 06/13/15 00:07) Difficulty Breathing symphony Allergy (Uncoded 06/13/15 00:07) Hives Date of admission: 08/16/16 07:50 Primary care physician: PCP NO Discharging clinician: Selvin Palmer Anticipated date of discharge: 08/17/16 - Patient Status Disposition: Home, Self-Care Condition: Fair Functional capacity at discharge: independent ambulation Overall status at discharge: patient is back to baseline - Discharge Instructions Instructions: Kidney Stones (DC), Hydronephrosis (DC) Follow Up With: Sylvester Marquez MD [Partnered Physician] - 08/24/16 10:15 am (1 week f/u for renal stone ) Marla Pappas CNP [Advanced Practice Nurse] - 08/28/16 1:45 pm Forms: Inpatient Work/School Release - Diet and Activity Activity: resume usual activities as tolerated Diet: advance to your usual diet Interval History: 21-year-old woman presents with a 2 day history of right flank pain. The pain is sharp and is located in the right flank. It radiates to the groin. She has never had pain like this before. It was quite severe. She came to the emergency department. A CT scan showed concern for a right proximal ureteral stone. She did have an elevated lipase. She was admitted for possible pancreatitis along with this obstructing stone. she was managed conservatively, received IVF hydration. she has had no recurrent pain, urology was consulted, recommended to observe for now. It will be reasonable to discharge her with oral pain medication and have her follow-up with me in 1 week for a checkup. If her pain returns, then she can proceed back to the emergency room. She has a 1 mm stone which is fairly small. I think there is a high likelihood that she will go to pass it on her own. she is being dc in stable condition Hospital course: Ms. aGlarza is a 21 year old female Time spent discussing smoking cessation with patient: more than 10 minutes - Time Spent with Patient Total time spent providing and/or coordinating discharge services: Greater than 30 minutes - Constitutional Vitals: Temp Pulse Resp BP Pulse Ox 98.0 F 78 16 97/64 97 08/17/16 10:41 08/17/16 10:41 08/17/16 10:41 08/17/16 10:41 08/17/16 10:41 General appearance: Present: A&O X 3, morbidly obese, pleasant, no acute distress Exam: - Head Head exam: Present: atraumatic, normocephalic - Eye Eye exam: Present: PERRL, conjuntiva pink, sclera anicteric Pupils: Present: PERRL - Neck Neck exam general surgery: Present: supple, trachea midline. Absent: lymphadenopathy - Respiratory Respiratory exam: Present: CTAB. Absent: accessory muscle use, rales, rhonchi, wheezes - Cardiovascular Cardiovascular exam: Present: RRR, +S1, +S2. Absent: diastolic murmur, gallop, rubs, systolic murmur - GI/Abdominal GI/Abdominal exam: Present: normal bowel sounds, soft, tenderness, no peritoneal signs. Absent: distended - Extremities Exam Extremities exam: Present: warm, radial pulses palpable and symetrical. Absent : calf tenderness, cyanotic, pedal edema - Neurological Exam Neurological exam: Present: CN II-XII intact, oriented X3, no focal deficits. Absent: facial droop, speech deficit - Skin Skin exam: Present: dry, intact
== END 2016-08-17 12:54 | disposition home or self-care (01) ==
LOC: EMEROO 04:30 → 3ANU 04:30
PROVIDERS: ADMIT Internal Medicine Endocrinology, Diabetes & Metabolism; ATTEND Internal Medicine